=== PATIENT | male | born 1970 | race Caucasian/White ===

== ENCOUNTER 2020-12-28 07:33 | Outpatient (CLI) | payer OTHER ==
[2020-12-28 09:05] LABS: BASOPHILS # (AUTO) 0.1 /CMM (0.0-0.2); BASOPHILS % (AUTO) 1.1 % (0.0-2.0); EOSINOPHILS % (AUTO) 2.1 % (0.0-6.0); HEMATOCRIT 50 % (39-51); HEMOGLOBIN 16.8 g/dL (13.5-17.5); LYMPHOCYTES # (AUTO) 1.2 /CMM (0.8-4.8); LYMPHOCYTES % (AUTO) 15.7 % (20.0-44.0); MEAN CORPUSCULAR HGB CONC 34 g/dl (31.0-36.0); MEAN CORPUSCULAR VOLUME 96 fL (80-96); MONOCYTES # (AUTO) 0.6 /CMM (0.1-1.30); MONOCYTES % (AUTO) 7.9 % (2.0-12.0); NEUTROPHILS # (AUTO) 5.7 /CMM (1.8-8.9); NEUTROPHILS % (AUTO) 73.2 % (43.0-81.0); PLATELET COUNT (AUTO) 263 /CMM (150-450); RED BLOOD CELL COUNT(AUTO) 5.23 MIL/uL (4.5-6.0); WHITE BLOOD COUNT (AUTO) 7.8 K/uL (4.3-11.0)
[2020-12-28 09:38] LABS: ALBUMIN 3.9 g/dL (3.4-5.0); BILIRUBIN,TOTAL 0.9 mg/dL (0.2-1.0); CALCIUM, SERUM 8.9 mg/dL (8.5-10.1); CREATININE 1.1 mg/dL (0.6-1.3); POTASSIUM 4.4 mmol/L (3.5-5.1)
== END 2020-12-28 23:59 | disposition home or self-care (01) ==
LOC: LAB 07:33
PROVIDERS: ATTEND Student in an Organized Health Care Education/Training Program
DX: Z01.818 Encounter for other preprocedural examination (principal); Z20.822 Contact with and (suspected) exposure to COVID-19
CPT/HCPCS: 36415; 71045; 80053; 85025; 85610; 85730; C9803; U0003

== ENCOUNTER 2020-12-30 12:10 | Day surgery (SDC) | payer OTHER ==
[~2020-12-30 12:10] MED LIST: BUPIVACAINE 0.25% 75 MG/30 ML VIAL ONE; BUPIVACAINE 0.5 % PF 150 MG/30 ML VIAL ONE; DESFLURANE 240 ML BOTTLE IH ONE; EPINEPHRINE (1:1000) 1 MG/ML AMPUL ONE; SEVOFLURANE 250 ML BOTTLE IH ONE
[2020-12-30] MEDS ORDERED: FENTANYL PF 100MCG/2ML AMPUL ONE (12:40)
[2020-12-30] MEDS ORDERED: BUPIVACAINE 0.25% 75 MG/30 ML VIAL ONE (12:40)
[2020-12-30] MEDS ORDERED: MORPHINE SULFATE/PF 10 MG/10ML (1MG/ML) AMPUL ONE (14:19)
[2020-12-30] MEDS ORDERED: FLUMAZENIL 0.5 MG VIAL ONE (14:35)
[2020-12-30] MEDS ORDERED: oxyCODONE/APAP (5/325 MG) 1 UDTAB TABLET PO PRN ×2 (15:30)
== END 2020-12-30 16:20 | disposition home or self-care (01) ==
LOC: DS 12:10 → EDSTATUS 13:31 → DS 16:20
PROVIDERS: ATTEND Student in an Organized Health Care Education/Training Program
DX: M75.42 Impingement syndrome of left shoulder (principal); M94.212 Chondromalacia, left shoulder
CPT/HCPCS: 29820; 29826; A4217; A4565 ×2; A6253; A6402; J0171 ×2; J0690; J1100; J2001; J2274; J2405; J2704; J3490 ×4; J7030; J3010